=== PATIENT | male | born 2000 | race Caucasian/White ===

== ENCOUNTER 2024-02-01 02:24 | Inpatient (IN) | payer OTHER ==
[~2024-02-01] VITALS: Ht 174 cm; Wt 100.0 kg
[2024-02-01 03:20] LABS: HEMATOCRIT 41.1 % (42.0-52.0); HEMOGLOBIN 13.6 g/dl (13.5-17.5); MEAN CORPUSCULAR HEMOGLOBIN 28.8 pg (27.0-33.0); MEAN CORPUSCULAR HGB CONC 33.1 g/dl (32.0-36.5); MEAN CORPUSCULAR VOLUME 87.1 fl (80.0-96.0); PLATELET COUNT, AUTOMATED 224 10^3/uL (150-450); RED BLOOD COUNT 4.72 10^6/uL (4.30-6.10); WHITE BLOOD COUNT 10.3 10^3/uL (4.0-10.0)
[2024-02-01 03:40] LABS: AMPHETAMINES LEVEL URINE NEGATIVE (NEGATIVE); BARBITURATES URINE NEGATIVE (NEGATIVE); BENZODIAZEPINES URINE NEGATIVE (NEGATIVE); COCAINE METABOLITE URINE NEGATIVE (NEGATIVE); METHADONE URINE NEGATIVE (NEGATIVE); OPIATES URINE NEGATIVE (NEGATIVE); PHENCYCLIDINE URINE NEGATIVE (NEGATIVE)
[2024-02-01 03:42] LABS: ETHYL ALCOHOL (ETHANOL) 0.004 % (0.000-0.010)
[2024-02-01 03:44] LABS: ALKALINE PHOSPHATASE 84 U/L (46-116); ALT/SGPT 23 U/L (7.0-40); AST/SGOT 12 U/L (<34); BILIRUBIN,DIRECT 0.1 MG/DL (<0.4); BILIRUBIN,TOTAL 0.3 MG/DL (0.3-1.2); BLOOD UREA NITROGEN 11 MG/DL (9-23); CALCIUM LEVEL 9.2 MG/DL (8.5-10.1); CARBON DIOXIDE LEVEL 27 MMOL/L (20-31); CHLORIDE LEVEL 107 MMOL/L (98-107); GLOMERULAR FILTRATION RATE > 60.0 (>60); GLUCOSE, FASTING 90 MG/DL (60-100); SALICYLATE LEVEL < 3.0 MG/DL (<30); SODIUM LEVEL 140 MMOL/L (136-145); TOTAL PROTEIN 7.2 G/DL (5.7-8.2)
[2024-02-01 03:46] LABS: THYROID STIMULATING HORMONE 0.924 uIU/ML (0.55-4.78)
[2024-02-01 04:13] LABS: CANNABINOIDS URINE POSITIVE (NEGATIVE)
[2024-02-01] MEDS ORDERED: HOME MED LIST COMPLETE! XX SCH (05:30)
[2024-02-01 12:32] VITALS: BP 155/90; TEMP 99; O2SAT 100
[2024-02-01 18:08] VITALS: BP 110/52; TEMP 98.1
[2024-02-01] MEDS ORDERED: ACETAMINOPHEN TAB 650MG DOSE (2X325MG) PO PRN (20:00)
[2024-02-01] MEDS ORDERED: MOM 30ML SUSPENSION UDC PO PRN (20:00)
[2024-02-01] MEDS ORDERED: MAALOX 30 ML SUSP *UDC PO PRN (20:00)
[2024-02-01] MEDS: traZODone 50 MG TAB PO PRN (20:37)
[2024-02-01] MEDS: NICOTINE 21MG/24HR 1 EA TRANSDERMAL TD PRN (20:37)
[2024-02-02 06:12] VITALS: BP 144/71; TEMP 98.4; O2SAT 96
[2024-02-02] MEDS ORDERED: TRAZ-252 PO (12:07)
[2024-02-02] MEDS ORDERED: NICO21PAT TD (12:07)
== END 2024-02-02 16:10 | disposition home or self-care (01) | DRG 880 ==
LOC: M ED 02:24 → M ED INP 07:04 → M PSY 12:24
PROVIDERS: ADMIT Student in an Organized Health Care Education/Training Program; ATTEND Student in an Organized Health Care Education/Training Program
DX: F43.0 Acute stress reaction (principal); F17.290 Nicotine dependence, other tobacco product, uncomplicated; Z63.0 Problems in relationship with spouse or partner; Z63.4 Disappearance and death of family member